=== PATIENT | female | born 1950 | race Caucasian/White ===

== ENCOUNTER 2016-07-16 18:34 | Inpatient (IN) | payer OTHER ==
[~2016-07-16] VITALS: Ht 167.6 cm; Wt 72.6 kg
[2016-07-17] MEDS ORDERED: LASIX 40 MG TAB40 MG PO (02:32)
[2016-07-17] MEDS ORDERED: POTASSIUM CHLO10 MEQ PO (02:32)
[2016-07-17] MEDS ORDERED: COREG 3.125M3.125 MG PO (02:33)
[2016-07-17] MEDS ORDERED: PRILOSEC OTC20 MG PO (02:33)
[2016-07-17] MEDS ORDERED: NEURONTIN 400400 MG PO (02:34)
[2016-07-17] MEDS ORDERED: PRAVACHOL40 MG PO (02:34)
[2016-07-17] MEDS ORDERED: PROZAC20 MG PO (02:34)
[2016-07-17] MEDS ORDERED: REQUIP0.25 MG PO (02:35)
[2016-07-17] MEDS ORDERED: DILTIAZEM HCL90 MG PO (02:35)
[2016-07-17] MEDS ORDERED: LOPID TAB 600600 MG PO (02:36)
[2016-07-17] MEDS ORDERED: BENADRYL 25MG C25 MG PO (02:36)
[2016-07-17] MEDS ORDERED: FOSAMAX PLUS D1 EACH PO (02:37)
[2016-07-17] MEDS ORDERED: LISINOPRIL20 MG PO (02:38)
[2016-07-17] MEDS ORDERED: CALTRATE 600+D1 EAC1 PO (02:38)
[2016-07-17] MEDS ORDERED: ASPIRIN81 MG PO (02:38)
[2016-07-17] MEDS ORDERED: VOLTAREN EC 5050 MG PO (02:39)
[2016-07-17] MEDS ORDERED: NORCO 10-325 T1 EACH PO (02:40)
[2016-07-17] MEDS ORDERED: ALPRAZOLAM0.5 MG PO (02:40)
[2016-07-17] MEDS ORDERED: REGLAN5 MG PO (02:41)
[2016-07-17 06:24] LABS: HEMOGLOBIN 9.3 gm/dl (12.3-15.3); RED BLOOD COUNT 3.1 M/UL (4.00-5.10); WHITE BLOOD COUNT 9.6 K/UL (4.5-11.0)
--- NOTE | 2016-07-17 20:08 | NUR ---
0515- DETAILED BEDSIDE REPORT GIVEN TO JENNIFER ANDERSON RN
[2016-07-18 04:10] LABS: HEMOGLOBIN 8.7 gm/dl (12.3-15.3); RED BLOOD COUNT 2.96 M/UL (4.00-5.10); WHITE BLOOD COUNT 7.6 K/UL (4.5-11.0)
[2016-07-18 04:31] LABS: BUN/CREATININE RATIO 9 (0-10)
[2016-07-18 10:45] LABS: ADENOVIRUS F 40/41 Not Detected (Negative); ASTROVIRUS Not Detected (Negative); CAMPYLOBACTER Not Detected (Negative); CLOSTRIDIUM DIFFICILE TOX A/B Not Detected (Negative); CRYPTOSPORIDIUM Not Detected (Negative); E.COLI 0157 Not Detected (Negative); ENTAMOEBA HISTOLYTICA Not Detected (Negative); ENTEROAGGREGATIVE E.COLI (EAEC Not Detected (Negative); ENTEROPATHOGENIC E.COLI (EPEC) Not Detected (Negative); ENTEROTOXIGENIC E.COLI (ETEC) Not Detected (Negative); GIARDIA LAMBLIA Not Detected (Negative); NOROVIRUS GI/GII Not Detected (Negative); PLESIOMONAS SHIGELLOIDES Not Detected (Negative); ROTOVIRUS A Not Detected (Negative); SALMONELLA Not Detected (Negative); SAPOVIRUS Not Detected (Negative); SHIG/ENTEROINVAS.ECOLI (EIEC) Not Detected (Negative); SHIGA-LIK TOX.PRO.E.COLI (STEC Not Detected (Negative); VIBRIO Not Detected (Negative); VIBRIO CHOLERAE Not Detected (Negative); YERSINIA ENTEROCOLITICA Not Detected (Negative)
--- NOTE | 2016-07-18 16:37 | NUR ---
0700 pt very noncomplant. pt refusing to wear any type of monioring. explained to patient the risk of not weaning monitor and pulse ox. notifed
[2016-07-19 05:55] LABS: HEMOGLOBIN 9.3 gm/dl (12.3-15.3); RED BLOOD COUNT 3.2 M/UL (4.00-5.10)
[2016-07-19 06:13] LABS: BUN/CREATININE RATIO 7 (0-10)
[2016-07-20 04:22] LABS: HEMOGLOBIN 9.9 gm/dl (12.3-15.3); RED BLOOD COUNT 3.35 M/UL (4.00-5.10); WHITE BLOOD COUNT 8.5 K/UL (4.5-11.0)
[2016-07-20 04:49] LABS: BUN/CREATININE RATIO 10 (0-10)
[2016-07-20] MEDS ORDERED: MEGACE 400400 MG/10 PO (13:27)
[2016-07-20] MEDS ORDERED: ENSURE ORIGINA237 ML PO (13:28)
== END 2016-07-20 14:09 | disposition home or self-care (01) | DRG 388 ==
LOC: PROG CARE 18:34 → MED SURG 4 07-17 01:33 → CCU 07-17 01:33 → M/S 07-17 01:33 → CCU 07-17 05:32 → MED SURG 4 07-18 18:07
PROVIDERS: Family Medicine; Internal Medicine; ADMIT Internal Medicine
PROC: 0BH17EZ Insertion of Endotracheal Airway into Trachea, Via Natural or Artificial Opening (ICD-10-PCS; principal; 2016-07-17)
PROC: 5A1935Z Respiratory Ventilation, Less than 24 Consecutive Hours (ICD-10-PCS; principal; 2016-07-17)
DX: K56.69 Other intestinal obstruction (principal); J96.00 Acute respiratory failure, unspecified whether with hypoxia or hypercapnia; G93.40 Encephalopathy, unspecified; N17.9 Acute kidney failure, unspecified; C77.9 Secondary and unspecified malignant neoplasm of lymph node, unspecified; E87.2 Acidosis; R19.7 Diarrhea, unspecified; I95.9 Hypotension, unspecified; T40.605A Adverse effect of unspecified narcotics, initial encounter; Y92.230 Patient room in hospital as the place of occurrence of the external cause; K81.9 Cholecystitis, unspecified; I10 Essential (primary) hypertension; G35 Multiple sclerosis; J44.9 Chronic obstructive pulmonary disease, unspecified; E66.3 Overweight; F17.210 Nicotine dependence, cigarettes, uncomplicated; F41.9 Anxiety disorder, unspecified; F32.9 Major depressive disorder, single episode, unspecified; K21.9 Gastro-esophageal reflux disease without esophagitis; M81.0 Age-related osteoporosis without current pathological fracture; E78.5 Hyperlipidemia, unspecified; G89.4 Chronic pain syndrome; Z79.51 Long term (current) use of inhaled steroids; Z90.2 Acquired absence of lung [part of]; Z85.118 Personal history of other malignant neoplasm of bronchus and lung; Z88.0 Allergy status to penicillin; Z88.2 Allergy status to sulfonamides; E87.6 Hypokalemia; D64.9 Anemia, unspecified; Z79.899 Other long term (current) drug therapy
CPT/HCPCS: 31500; 36415; 36600; 71010; 80048; 80053; 80307; 82009; 82272; 82550; 82553; 82803; 82962; 83036; 83605; 83735; 84132; 84484; 85027; 86140; 87507; 94002; C9113; G0480; J0330; J1650; J2185; J2310; J2405; J3480; J7050; J7070; Q9962